=== PATIENT | female | born 1990 | race Caucasian/White ===

== ENCOUNTER 2022-01-06 05:45 | Inpatient (IN) | payer BC ==
[2022-01-06 06:19] VITALS: BMI 30.9
[2022-01-06] MEDS ORDERED: CITRIC ACID/SODIUM CITRATE 30 ML UNIT-DOSE CUP PO ONE ×2 (06:30→09:52)
[2022-01-06] MEDS ORDERED: ELECTROLYTE-148 SOLN 500 ML IV SCH ×2 (06:30→07:00)
[2022-01-06 07:23] LABS: BASO % 0.6 % (0-2.0); EOS % 1.2 % (0-4.5); HEMATOCRIT 37.3 % (32.4-45.2); HEMOGLOBIN 12.5 GM/dL (10.7-15.3); LYMPH % 31.1 % (8-40); MCH 31.4 pg (25.7-33.7); MCHC 33.6 g/dl (32.0-36.0); MEAN CELL VOLUME 93.3 fl (80-96); MEAN PLT VOLUME 7.8 fl (7.5-11.1); MONO % 7.2 % (3.8-10.2); NEUT % 59.9 % (42.8-82.8); PLATELET COUNT 291 10^3/uL (134-434); RDW 14.7 % (11.6-15.6); WHITE BLOOD COUNT 9.8 K/mm3 (4.0-10.0)
[2022-01-06 07:31] LABS: INR 0.86 (0.83-1.09); PROTHROMBIN TIME (PATIENT) 9.9 SEC (9.7-13.0)
[2022-01-06 07:34] LABS: ACTIVATED PTT 26.7 SECONDS (25.2-36.5)
[2022-01-06 07:47] LABS: CALCIUM 9.2 mg/dL (8.5-10.1)
[2022-01-06 07:48] LABS: BLOOD UREA NITROGEN 10.1 mg/dL (7-18)
[2022-01-06 07:51] LABS: CREATININE 0.6 mg/dL (0.55-1.3)
[2022-01-06] MEDS ORDERED: ONDANSETRON 4 MG/2 ML VIAL ONE (08:06)
[2022-01-06] MEDS ORDERED: DEXAMETHASONE SOD PHOSPHATE 4 MG/1 ML VIAL ONE (08:06)
[2022-01-06] MEDS ORDERED: ceFAZolin SODIUM 1 GM VIAL ONE (08:06)
[2022-01-06] MEDS ORDERED: morphine SULFATE/PF 1 MG/2 ML (2cc Syringe - QUVA) ONE (08:07)
[2022-01-06] MEDS ORDERED: SODIUM CHLORIDE 0.9% P/F 10 ML VIAL IJ ONE (08:11)
[2022-01-06] MEDS ORDERED: OXYTOCIN 10 UNITS/ML VIAL ONE (08:36)
[2022-01-06] MEDS ORDERED: OXYTOCIN 20 UNITS in 0.9% NS 20 UNIT/1,000 ML INFUS.BAG IV ONE (09:28)
[2022-01-06] MEDS: OXYTOCIN 20 UNITS in 0.9% NS 20 UNIT/1,000 ML INFUS.BAG IV SCH ×2 (09:35→18:00)
[2022-01-06] MEDS ORDERED: ELECTROLYTE-148 SOLN 500 ML IV ONE (09:52)
[2022-01-06] MEDS ORDERED: SENNOSIDES/DOCUSATE COMBO (SENNA PLUS) TABLET (UD) PO PRN (09:54)
[2022-01-06] MEDS ORDERED: METHYLERGONOVINE MALEATE 0.2 MG/1 ML AMP IM PRN (09:54)
[2022-01-06] MEDS ORDERED: ACETAMINOPHEN 325 MG TABLET (FP) PO PRN (09:54)
[2022-01-06] MEDS ORDERED: ELECTROLYTE-148 SOLN 1,000 ML IV SCH (10:00)
[2022-01-06 11:17] LABS: HIV INTERPRETATION NEGATIVE (NEGATIVE)
[2022-01-06] MEDS ORDERED: IBUPROFEN 800 MG/8 ML IJ IVPB PRN (14:26)
[2022-01-06] MEDS ORDERED: oxyCODONE HCL 5 MG TABLET PO PRN ×2 (21:54)
[2022-01-07] MEDS ORDERED: BISACODYL 10 MG SUPP.RECT RC PRN (09:54)
[2022-01-07 11:49] LABS: BASO % 0.4 % (0-2.0); EOS % 0.7 % (0-4.5); HEMATOCRIT 32.1 % (32.4-45.2); HEMOGLOBIN 10.7 GM/dL (10.7-15.3); LYMPH % 24.2 % (8-40); MCH 31.4 pg (25.7-33.7); MCHC 33.3 g/dl (32.0-36.0); MEAN CELL VOLUME 94.1 fl (80-96); MONO % 7.2 % (3.8-10.2); NEUT % 67.5 % (42.8-82.8); PLATELET COUNT 277 10^3/uL (134-434); RBC 3.41 M/mm3 (3.60-5.2); RDW 14.9 % (11.6-15.6); WHITE BLOOD COUNT 12.4 K/mm3 (4.0-10.0)
[2022-01-07] MEDS: IBUPROFEN 600 MG TABLET (FP) PO PRN ×2 (13:19→22:17)
[2022-01-07] MEDS: SIMETHICONE 80 MG TAB.CHEW (FP) PO PRN ×2 (13:19→22:17)
[2022-01-08 11:14] VITALS: BP 127/88; PULSE 88; TEMP 98.5
[2022-01-08] MEDS: IBUPROFEN 600 MG TABLET (FP) PO PRN (11:47)
[2022-01-08] MEDS: SIMETHICONE 80 MG TAB.CHEW (FP) PO PRN (11:49)
== END 2022-01-08 14:15 | disposition home or self-care (01) | DRG 788 ==
LOC: JLDR 05:45 → J3W 10:30
PROVIDERS: ADMIT Obstetrics & Gynecology; ATTEND Obstetrics & Gynecology
PROC: 10D00Z1 Extraction of Products of Conception, Low, Open Approach (ICD-10-PCS; principal; 2022-01-06)
DX: O34.211 Maternal care for low transverse scar from previous cesarean delivery (principal); Z3A.40 40 weeks gestation of pregnancy; Z37.0 Single live birth
CPT/HCPCS: 36415; 80048; 85025; 85610; 85730; 86780; 86850; 86900; 86901; 87389; 88307-TC